=== PATIENT | female | born 1950 | race Caucasian/White ===

== ENCOUNTER → 2020-09-04 09:10 | Outpatient (CLI) | payer MEDICARE, OTHER, SELFPAY ==
--- NOTE | 2020-09-04 09:15 | DI.NM.S_ITS ---
PROCEDURE: NM SUNI PERF SPECT REST & STR Rest and exercise myocardial perfusion SPECT with gated imaging and ejection fraction RADIOPHARMACEUTICAL: 11.7 mCi Tc-99m sestamibi IV at rest and 25.3 mCi Tc-99m sestamibi IV at peak exercise. A one day-protocol was performed. INDICATIONS: Dyspnea, unspecified TECHNIQUE: Radiopharmaceutical was injected at peak stress test, and also at rest. SPECT images were obtained. SPECT myocardial perfusion images were displayed in short axis, horizontal long axis, and vertical long axis views. Gated images were reviewed using [employer] software. COMPARISON: None. CARDIAC STRESS: A standard Christian treadmill exercise tolerance test was performed by the patient under the supervision of an attending staff. The patient exercised for 6 minutes and 0 seconds; functional aerobic impairment (SUGAR) is 0%. Hemodynamic data: There is normal blood pressure and heart rate response to exercise stress. Patient achieved 92% of maximum predicted heart rate at peak exercise. Symptoms: Patient denied chest pain during exercise. EKG: No diagnostic EKG changes of ischemia; frequent PACS with 3-5 beat run of atrial tachycardia that correlated with palpitations. FINDINGS: Raw data: There is good myocardial labeling by radiotracer. No significant motion artifacts. Qnzw-yj-xwbsx ratio is 0.26 (normal is less than 0.38 for sestamibi tracer, and less than 0.50 for thallium tracer). Left ventricle function: Gated images demonstrate normal left ventricle wall thickening. No segmental wall motion abnormality. No transient ischemic dilation; TID is 0.80 (normal less than 1.3). The left ventricle resting end-diastolic volume is 87mL. Left ventricle stress ejection fraction is 83%; normal values are above 45%. Myocardial perfusion: There is midly intense distal anterior wall defect at rest that improves slightly with supine stress imaging, suggesting probably breast attenuation artifact even though a small prior distal anterior non-transmural infarction can'be excluded. No ischemia. Prone images not helpful due to artifacts. IMPRESSION: Low risk, probably normal treadmill nuclear stress test 1) No perfusion evidence of ischemia. There is midly intense distal anterior wall defect at rest that improves slightly with supine stress imaging, suggesting probably breast attenuation artifact even though a small prior distal anterior non-transmural infarction can'be excluded. SSS 0. 2) Normal left ventricular size, wall motion, and systolic function (EF post stress 82%). 3) No ECG evidence of ischemia. 4) Frequent PACs with 3-5 beat run of atrial tachycardia that correlated with palpitations. 5) No angina during the study. 6) Average exercise tolerance (7.0 METs, SUGAR 0%). Target heart rate achieved. Appropriate BP response to exercise. 7) No prior nuclear stress test available for comparison. 1) Dictated by: Brittney Connolly MD on 09/04/2020 at 18:03 Approved by: Brittney Connolly MD on 09/04/2020 at 18:09
[2020-09-04 11:09] LABS: COVID19 - ADMIT (NP swab/PCR) Negative (Negative)
== END ==
PROVIDERS: Internal Medicine; Family Provider Family Medicine; PCP Family Medicine; Referring Provider Family Medicine; Visit Provider Family Medicine
DX: R06.00 Dyspnea, unspecified (principal); Z20.822 Contact with and (suspected) exposure to COVID-19
CPT/HCPCS: 78452; 93017; U0003; A9502

== ENCOUNTER → 2022-11-29 15:10 | Outpatient (CLI) | payer MEDICARE, OTHER, SELFPAY ==
--- NOTE | 2022-11-29 15:12 | DI.MRI.S_ITS ---
PROCEDURE: MR LUMBAR SPINE WO CON INDICATIONS: Sciatica, right-sided TECHNIQUE: Noncontrast sagittal T1 spin echo and T2 fast echo, sagittal STIR, and T2 fast spin echo through the lumbar spine. In cases with scoliosis, additional coronal T2 fast spin echo may be performed. COMPARISON: None. FINDINGS: Image quality: Excellent. Alignment and Curvature: Straightening of normal lumbar lordosis. No spondylolisthesis. Bone Marrow: Marrow is of normal overall signal. No acute vertebral body compression fractures. Spinal Cord: Conus medullaris terminates at the L1 level. Visualized cord demonstrates normal signal and size. Paraspinous Soft Tissues: No paravertebral masses. T12-L1: No central canal or neural foraminal stenosis. L1-L2: Minimal posterior disc bulge and facet arthropathy and thickening ligamentum flavum. Mild epidural lipomatosis. No central canal or neural foraminal stenosis. L2-L3: Disc desiccation and height loss with a posterior disc bulge. Facet arthropathy and thickening of the ligamentum flavum. Mild epidural lipomatosis. No central canal or neural foraminal stenosis. L3-L4: Disc desiccation and height loss with a posterior disc bulge. Facet arthropathy and thickening of the ligamentum flavum. Mild epidural lipomatosis. Mild central canal stenosis. No neural foraminal stenosis. L4-L5: Disc desiccation and height loss with a posterior disc bulge. Facet arthropathy and thickening of the ligamentum flavum. Moderate central canal stenosis. Mild epidural lipomatosis. Mild left neural foraminal stenosis. No right neural foraminal stenosis. L5-S1: Disc desiccation height loss. Right paracentral disc protrusion. Narrowing of the right lateral recess with abutment of the descending right S1 nerve root. No central canal stenosis. Facet arthropathy. No neural foraminal stenosis. IMPRESSION: 1. Multilevel degenerative changes of the lumbar spine, most pronounced at L4-5 with moderate central canal stenosis. 2. There is up to mild neural foraminal stenosis as described above. There is narrowing of the right lateral recess at L5-S1 with abutment of the descending right S1 nerve root without evidence of compression. Dictated by: Antonio Khan M.D. on 11/29/2022 at 16:26 Approved by: Antonio Khan M.D. on 11/29/2022 at 16:30
--- NOTE | 2022-11-29 15:12 | DI.MRI.S_ITS ---
PROCEDURE: MR SHOULDER RT WO CON INDICATIONS: Pain in right shoulder TECHNIQUE: Noncontrast oblique coronal T2 fast spin echo with fat saturation, oblique sagittal T1 spin echo and T2 fast spin echo with fat saturation, axial T1 spin echo and T2 fast spin echo with fat saturation through the shoulder. COMPARISON: None. FINDINGS: Image quality: Degraded by body habitus. Rotator cuff: Low-grade intrasubstance tears of the anterior, mid, and posterior supraspinatus as well as the anterior, mid, and posterior infraspinatus tendon at the humeral insertion site. No definite subscapularis or teres minor tendon tear. No rotator cuff atrophy. Bones and bursae: No bone marrow contusions or fractures. Moderate glenohumeral and acromioclavicular joint degeneration. The acromion demonstrates conventional anatomy, without an os acromiale. No pathologic subacromial-subdeltoid or subcoracoid bursal fluid is present. Capsule and soft tissues: Diffuse glenoid labral tearing is present. There is a moderate glenohumeral joint effusion. Multiple intra-articular loose bodies are present, largest of which is in the subcoracoid recess measuring 12 mm diameter. The long head of the biceps tendon demonstrates normal location and morphology. The rotator interval appears normal, without fibrosis. The coracohumeral ligament is normal in thickness. IMPRESSION: 1. Acromioclavicular and glenohumeral joint osteoarthritis. 2. Glenoid labral tearing. 3. Glenohumeral joint effusion with intra-articular loose bodies. 4. Low-grade partial-thickness tears of the supraspinatus and infraspinatus tendons. No definite full-thickness rotator cuff tear. Dictated by: Lakesha Melchor M.D. on 11/30/2022 at 8:31 Approved by: Lakesha Melchor M.D. on 11/30/2022 at 8:34
--- NOTE | 2022-11-29 15:12 | DI.MRI.S_ITS ---
PROCEDURE: MR CERVICAL SPINE WO CON INDICATIONS: Cervicalgia TECHNIQUE: Noncontrast sagittal T1 spin echo and T2 fast spin echo, sagittal STIR, foraminal oblique sagittal T2 fast spin echo, and axial gradient echo or T2 fast spin echo through the cervical spine. COMPARISON: None. FINDINGS: Image quality: This examination is limited by involuntary motion artifact. Alignment and Curvature: There is normal bony alignment. Bone Marrow: Marrow demonstrates normal overall signal. Spinal Cord: Visualized spinal cord has normal size and signal. No cerebellar tonsillar herniation. Paraspinous Soft Tissues: No paravertebral masses. Prevertebral soft tissues are normal in thickness. C2-C3: The disc height is well-preserved. Loss of disc signal is seen at this level. Mild to moderate disc osteophyte complex is seen. Mild facet joint hypertrophy is seen. There is at least moderate right-sided and no significant left-sided neural foraminal narrowing. No significant central canal narrowing is seen. C3-C4: The disc height is well-preserved. Loss of disc signal is seen at this level. Mild to moderate disc osteophyte complex is seen, which is slightly eccentric to the left. Moderate facet hypertrophy can be seen, left worse than right. There is moderate to severe left-sided and [id number] right-sided neural foraminal narrowing. Mild central canal narrowing is seen. C4-C5: The disc height is well-preserved. Loss of disc signal is seen at this level. Mild to moderate disc osteophyte complex is seen. There is at least moderate right-sided and moderate left-sided facet hypertrophy. There is moderate bilateral neural foraminal narrowing seen. Mild central canal narrowing is seen. C5-C6: The disc height is well-preserved. Loss of disc signal is seen at this level. Moderate generalized disc osteophyte complex is seen. There is at least moderate left-sided and [id number]-[id number] right-sided neural foraminal narrowing. There is moderate to severe left-sided and moderate right-sided neural foraminal narrowing. Minimal central canal narrowing is seen. C6-C7: Mild loss of disc height is seen. Loss of disc signal is seen. At least moderate disc osteophyte complex is seen. There is at least moderate facet hypertrophy seen at this level. There is moderate to severe bilateral neural foraminal narrowing seen, left worse than right. Mild central canal narrowing is seen. C7-T1: No significant abnormality is seen. IMPRESSION: Multiple levels of cervical spine degenerative change can be seen, which are overall worst at the C6-C7 level. Dictated by: Hayden Tejeda M.D. on 11/29/2022 at 17:47 Approved by: Hayden Tejeda M.D. on 11/29/2022 at 17:50
== END ==
PROVIDERS: Family Provider Family Medicine; PCP Nurse Practitioner Family; Referring Provider Nurse Practitioner Family; Visit Provider Nurse Practitioner Family
DX: M75.111 Incomplete rotator cuff tear or rupture of right shoulder, not specified as traumatic (principal); S43.491A Other sprain of right shoulder joint, initial encounter; M19.011 Primary osteoarthritis, right shoulder; M47.812 Spondylosis without myelopathy or radiculopathy, cervical region; M47.816 Spondylosis without myelopathy or radiculopathy, lumbar region; M47.817 Spondylosis without myelopathy or radiculopathy, lumbosacral region; M48.061 Spinal stenosis, lumbar region without neurogenic claudication; M25.511 Pain in right shoulder; M54.31 Sciatica, right side; M54.2 Cervicalgia
CPT/HCPCS: 72141; 72148; 73221

== ENCOUNTER → 2023-09-22 | Outpatient (CLI) | payer MEDICARE, SELFPAY ==
--- NOTE | 2023-09-22 12:16 | DI.MRI.S_ITS ---
PROCEDURE: MR OPTIC NRV WWO CON INDICATIONS: Exophthalmos TECHNIQUE: Noncontrast sagittal T1 spin echo, axial FLAIR, axial gradient echo, axial diffusion and ADC acquired through the brain. Coronal STIR, thin-slice axial T1 spin echo through the orbits. After the administration of contrast, thin-slice axial and coronal T1 spin echo with fat saturation through the orbits, axial and coronal and sagittal T1 spin echo with fat saturation through the brain. COMPARISON: None. FINDINGS: Image quality: Excellent. Orbits: Globes are symmetrical. Bilateral lens replacements. The optic nerves are normal in size, without abnormal signal or enhancement. No retrobulbar masses or fat abnormalities. The extra-ocular muscles are normal and symmetric in appearance. Lacrimal glands are normal. Optic chiasm is normal. Periorbital soft tissues appear normal. CSF spaces: Ventricles are normal in size and shape. Basal cisterns are patent. No extra-axial fluid collections. Brain: No intracranial bleeds or mass effects. No abnormal intracranial enhancement. Swartz-white matter interface is intact. There is age appropriate global volume loss and mild chronic microvascular ischemic changes. Diffusion weighted images demonstrate no acute ischemic insults. Pituitary gland appears normal, without sellar or suprasellar masses. Brainstem appears normal. Normal intravascular flow voids are present. Right cerebellar hemisphere developmental venous anomaly. Skull and face: Calvarial marrow is normal in signal. Sinuses: Sinuses and mastoids are clear. IMPRESSION: Bilateral lens replacements. The orbits are otherwise normal in appearance. No abnormal enhancement or edema. No significant exophthalmos is appreciated radiographically, recommend clinical correlation. Age-related global volume loss and mild chronic microvascular ischemic changes. No acute intracranial abnormalities. Dictated by: Antonio Khna M.D. on 09/22/2023 at 14:31 Approved by: Antonio Khan M.D. on 09/22/2023 at 14:36
== END ==
LOC: MRI 12:13
PROVIDERS: Family Provider Family Medicine; PCP Nurse Practitioner Family
DX: H05.20 Unspecified exophthalmos (principal); Z96.1 Presence of intraocular lens
CPT/HCPCS: 70543; 70553; A9579

== ENCOUNTER → 2024-01-11 13:37 | Outpatient (CLI) | payer MEDICARE, SELFPAY ==
--- NOTE | 2024-01-11 13:39 | DI.MRI.S_ITS ---
PROCEDURE: MR ANKLE RT WO CON INDICATIONS: RT ANKLE PAIN, ARTHRITIS TECHNIQUE: Noncontrast sagittal T1 spin echo and T2 fast spin echo with fat saturation, axial proton density fast spin echo and T2 fast spin echo with fat saturation, coronal T1 spin echo and T2 fast spin echo with fat saturation through the ankle/hindfoot. COMPARISON: None. FINDINGS: Image quality: Excellent. Moderate diffuse subcutaneous soft tissue edema medial greater than laterally may be related to venous stasis or other process. Bones and joints: No bone marrow contusions or fractures. No osteochondral injuries of the talar dome. No pathologic joint effusions. Medial structures: Increased T2 weighted signal, edema and thickening of the distal posterior tibialis tendon has the appearance of partial tear. Injury/partial tear of the anterior tibiotalar ligament , deltoid ligament and talocalcaneal ligaments. The flexor digitorum longus, and flexor hallucis longus tendons are intact. The posterior tibial neurovascular bundle appears normal within the tarsal tunnel, without extrinsic mass effect. The spring ligament is intact. Lateral structures: Injury/tear of the calcanealfibular ligament. Fluid surrounding the mid and distal Peroneus longus and brevis tendons, tenosynovitis. The anterior and posterior talofibular ligaments appear intact. More superiorly, the anterior and posterior tibiofibular ligaments appear intact. The tibiofibular syndesmosis is normal in width at 2 mm or less. Anterior structures: The tibialis anterior, extensor hallucis longus, and extensor digitorum longus tendons appear intact. The dorsal talonavicular ligament appears intact. Posterior and plantar structures: Achilles tendon is intact. IMPRESSION: Diffuse soft tissue edema predominantly laterally may be related to venous stasis, ecchymosis or other process. Peroneus tenosynovitis. Ligamentous injuries with partial tears predominantly medially as discussed above. Other findings as discussed above. Dictated by: Jose Gregory M.D. on 01/16/2024 at 8:23 Approved by: Jose Gregory M.D. on 01/16/2024 at 8:48
== END ==
PROVIDERS: Family Provider Family Medicine; PCP Nurse Practitioner Family; Referring Provider Nurse Practitioner Family; Visit Provider Nurse Practitioner Family
DX: S93.421A Sprain of deltoid ligament of right ankle, initial encounter (principal); S93.411A Sprain of calcaneofibular ligament of right ankle, initial encounter; S93.491A Sprain of other ligament of right ankle, initial encounter; M65.871 Other synovitis and tenosynovitis, right ankle and foot; M25.571 Pain in right ankle and joints of right foot
CPT/HCPCS: 73721

== ENCOUNTER 2024-09-14 17:05 | Observation (INO) | payer OTHER, SELFPAY ==
[2024-09-14] VITALS (8 sets, daily range): BP systolic 118–162; BP diastolic 58–94; PULSE 67–75; RESP 16–18; TEMP 37.1; O2SAT 94–99; BMI 32.3
--- NOTE | 2024-09-14 18:02 | EKG_ITS ---
[address] [address] Test Date: 2024-09-14 Pat Name: Carmela Ac Department: [facility] Room: Gender: Female Integrated [employer] Intern: SYDNEY : 1950 Requested By: Order Number: [id number] Reading MD: Guevara Garay Measurements Intervals Jackson Rate: 71 P: 60 TX: 128 QRS: 42 QRSD: 124 T: 32 QT: 430 QTc: 467 Interpretive Statements Normal sinus rhythm Right bundle branch block Electronically Signed On 09-15-2024 8:43:20 PDT by Guevara Garay
[2024-09-14 18:47] LABS: Add Manual Diff / Slide Review NO; Basophils Absolute Auto 0 /uL (0-100); Basophils Percent Auto 0.9 % (0-2); Eosinophils Absolute Auto 100 /uL (0-450); Eosinophils Percent Auto 3.5 % (2-4); Hematocrit 40.5 % (36-46); Hemoglobin 13.3 g/dL (12.0-16.0); Lymphocytes Absolute Auto 1000 /uL (1100-4500); Lymphocytes Percent Auto 32.5 % (25-40); Mean Corpuscular HGB Conc 32.9 % (30-36); Mean Corpuscular Hemoglobin 27.8 PG (26-34); Mean Corpuscular Volume 84.6 fL (80-100); Monocytes Absolute Auto 300 /uL (0-900); Monocytes Percent Auto 10.9 % (3-14); Neutrophils Absolute Auto 1600 /uL (1500-7000); Neutrophils Percent Auto 52.2 % (50-75); Platelet Count 147 X10^3/uL (150-400); Red Blood Cell Count 4.79 X10^6/uL (4.0-5.2); Red Cell Distribution Width 13.7 % (11.6-14.8); White Blood Cell Count 3.1 X10^3/uL (4.5-11.0)
[2024-09-14 18:51] LABS: Alanine Aminotransferase 15 IU/L (<35); Albumin 4.1 g/dL (3.5-5.0); Albumin Globulin Ratio 1.5 (1.0-2.8); Alkaline Phosphatase 55 U/L (38-126); Aspartate Aminotransferase 30 IU/L (14-36); BUN Creatinine Ratio 17.4 (6-22); Bilirubin Total 0.8 mg/dL (0.2-1.3); Blood Urea Nitrogen 12 mg/dL (7-17); Calcium 9.1 mg/dL (8.4-10.2); Carbon Dioxide 25 mmol/L (22-32); Chloride 104 mmol/L (98-107); Estimated Glomerular Filt Rate > 60 mL/min (>60); Globulin 2.7 g/dL (1.7-4.1); Glucose 95 mg/dL (70-99); HEMOLYSIS 30 (0-50); Lipase 84 U/L (23-300); Potassium 4.2 mmol/L (3.4-5.1); Sodium 136 mmol/L (137-145); Total Protein 6.8 g/dL (6.3-8.2)
[2024-09-14 20:55] LABS: Troponin I < 0.012 ng/mL (0.01-0.034)
--- NOTE | 2024-09-14 21:31 | DI.US.S_ITS ---
PROCEDURE: US ABDOMEN LIMITED INDICATIONS: CHOLELITHIASIS WITH WORSENING PAIN TECHNIQUE: Real-time focused scanning was performed of the abdomen, with image documentation. COMPARISON: None. FINDINGS: Nonmobile 2.1 cm gallstone is seen. No sonographic Staton sign. Heterogeneous coarsened hepatic echotexture. Liver cysts are seen, largest in the left measuring 1.2 cm. Mildly distended CBD at 8 mm. Pancreas not well seen due to bowel gas. IMPRESSION: Cholelithiasis without sonographic Staton sign to suggest cholecystitis. Increased heterogeneous coarsened hepatic echotexture, nonspecific, most commonly hepatocellular disease. Mildly distended CBD at 8 mm. Dictated by: Jeff Moore M.D. on 09/14/2024 at 23:08 Approved by: Jeff Moore M.D. on 09/14/2024 at 23:09
[2024-09-14] MEDS: ONDANSETRON 4 MG/2 ML INJ IV (22:36)
--- NOTE | 2024-09-14 23:03 | ED.ABDPAIN ---
HPI - Abdominal Pain General Chief Complaint: Abdominal Pain Stated Complaint: gallstone sent by PCP Time Seen by Provider: 09/14/24 21:52 Source: patient Mode of arrival: Ambulatory History of Present Illness HPI narrative: 73-year-old female complains of right upper quadrant discomfort for the last 1 month intermittent, had outpatient ultrasound through [facility] on [facility] about 2 weeks ago showing gallstones, had been trying to avoid fatty foods, [place] appointment and was in the [place] line to return back to [facility] when she was having increasing nausea and increasing right upper quadrant abdominal pain, communicated with her primary care provider, who advised patient to go to this/nearest hospital for imaging. No fevers or chills. Ongoing nausea. Denies recent cough or shortness of breath. No chest pain. She does not take blood thinner medications. PSHx: Bilateral knee replacements. L ankle-foot tendon transfer surgery. Denies abdominopelvic surgeries. Related Data Home Medications ?Medication ?Instructions ?Recorded ?Confirmed dextroamphetamine-amphetamine ER 1 cap PO DAILY 09/15/24 09/15/24 10 mg 24hr capsule,extend release estradiol 0.025 mg/24 hr weekly 1 patch transdermal .COMPLEX 09/15/24 09/15/24 transdermal patch fluoxetine 10 mg capsule 10 mg PO DAILY 09/15/24 09/15/24 levothyroxine 125 mcg tablet 125 mcg PO DAILY 09/15/24 09/15/24 pramipexole 0.25 mg tablet 0.25 mg PO 3XD 09/15/24 09/15/24 progesterone micronized 100 mg 100 mg PO QPM 09/15/24 09/15/24 capsule trazodone 100 mg tablet 100 mg PO ONCE PM PRN insomnia 09/15/24 09/15/24 Allergies Allergy/AdvReac Type Severity Reaction Status Date / Time Sulfa (Sulfonamide Allergy Severe Anaphylaxis Verified 09/14/24 18:03 Antibiotics) Patient History Social History household members: none Smoking Status: Never smoker Exam Narrative Exam Narrative: GENERAL: Well-developed patient, in mild distress. HEAD: Atraumatic. Normocephalic. EYES: Pupils equal round and reactive. Extraocular motions intact. No scleral icterus. No injection or drainage. ENT: Nose without bleeding, purulent drainage. Throat without erythema, tonsillar hypertrophy or exudate. Airway patent. NECK: Trachea midline. Non tender CARDIOVASCULAR: Regular rate and rhythm without murmurs, gallops, or rubs. RESPIRATORY: Clear to auscultation. Breath sounds equal bilaterally. No wheezes, rales, or rhonchi. GASTROINTESTINAL: Abdomen nondistended, some tenderness right upper quadrant on deep palpation. Bowel tones hypoactive, without rushes or tinkles. EXTREMITIES: No edema or joint tenderness. BACK: Nontender without deformity or crepitance. No flank tenderness. NEURO: AOx3. Motor functions grossly nonfocal SKIN: No rash or erythema of visible areas Initial Vital Signs Initial Vital Signs: Vital Signs Temperature 98.7 F 09/14/24 17:57 Pulse Rate 74 09/14/24 17:57 Respiratory Rate 18 09/14/24 17:57 Blood Pressure 153/94 H 09/14/24 17:57 Pulse Oximetry 97 09/14/24 17:57 Oxygen Delivery Method Room Air 09/14/24 17:57 Course Orders Ordered: ED Orders 09/14/24 18:02 EKG-12 Lead Stat 09/14/24 18:15 Complete Blood Count AUTO DIFF Stat Comprehensive Metabolic Panel Stat Lipase Stat 09/14/24 19:48 Troponin I Stat 09/14/24 21:31 US abdomen limited Stat 09/15/24 06:00 Complete Blood Count AUTO DIFF DAILY Comprehensive Metabolic Panel DAILY Acetaminophen (Acetaminophen 325 Mg Tablet) 650 mg PO Q6H PRN PRN Reason: Fever/Mild Pain (1-3) Hydrocodone Bitart/Acetaminophen (Hydrocodone/Acet 5/325 Tablet) 1 tab PO Q4H PRN PRN Reason: Pain, Moderate (4-6) Cyclobenzaprine HCl (Cyclobenzaprine 10 Mg Tablet) 10 mg PO Q8HR PRN PRN Reason: Spasms Fluoxetine HCl (Fluoxetine 10 Mg Capsule) 10 mg PO DAILY MAYI Sodium Chloride (Normal Saline 0.9%) 1,000 mls @ 100 mls/hr IV CONT MAYI Levothyroxine Sodium (Levothyroxine 125 Mcg Tablet) 125 mcg PO 0600 MAYI Morphine Sulfate (Morphine 4 Mg/Ml Inj) 3 mg IV Q2HR PRN PRN Reason: pain severe Naloxone HCl (Naloxone 0.4 Mg/Ml Vial) 0.2 mg IV Q2MIN PRN PRN Reason: Opiate Reversal Ondansetron HCl (Ondansetron 4 Mg/2 Ml Inj) 4 mg IV NOW PRN PRN Reason: Nausea And Vomiting Last Admin: 09/14/24 22:36 Dose: 4 mg Documented By: KATIUSKA Ondansetron HCl (Ondansetron 4 Mg Odt) 4 mg PO NOW PRN PRN Reason: Nausea And Vomiting Ondansetron HCl (Ondansetron 4 Mg/2 Ml Inj) 4 mg IV Q8HR PRN PRN Reason: Nausea And Vomiting Pramipexole Dihydrochloride (Pramipexole 0.25 Mg Tablet) 0.25 mg PO TID MAYI Progesterone (Progesterone, Micronized 100 Mg Capsule) 100 mg PO QPM MAYI Sodium Chloride (Sodium Chloride 0.9% Flush) 10 ml IV PRN PRN PRN Reason: Flush Trazodone HCl (Trazodone 50 Mg Tablet) 100 mg PO BEDTIME PRN PRN Reason: Insomnia Discontinued Medications Ondansetron HCl (Ondansetron 4 Mg/2 Ml Inj) 4 mg IV NOW ONE Stop: 09/14/24 23:26 Last Admin: 09/14/24 23:31 Dose: Not Given Documented By: AM Vital Signs Vital signs: Vital Signs - 8 hr 09/14/24 21:39 09/14/24 21:50 09/14/24 22:06 Temperature Pulse Rate 71 67 75 Respiratory Rate 16 18 Blood Pressure 162/76 H Pulse Oximetry 99 98 Oxygen Delivery Method Room Air Room Air Oxygen Flow Rate 09/14/24 22:08 09/14/24 22:08 09/14/24 22:30 Temperature Pulse Rate 71 Respiratory Rate 18 Blood Pressure 152/74 H 140/70 Pulse Oximetry 98 Oxygen Delivery Method Oxygen Flow Rate 09/14/24 22:30 09/14/24 23:00 09/14/24 23:00 Temperature Pulse Rate 68 72 Respiratory Rate 18 18 Blood Pressure 118/58 L Pulse Oximetry 99 99 Oxygen Delivery Method Room Air Oxygen Flow Rate 09/14/24 23:30 09/15/24 00:00 09/15/24 00:13 Temperature Pulse Rate 71 73 Respiratory Rate 18 18 18 Blood Pressure 137/81 Pulse Oximetry 94 97 Oxygen Delivery Method Room Air Oxygen Flow Rate 09/15/24 00:13 09/15/24 00:28 09/15/24 00:30 Temperature 97.6 F Pulse Rate 88 78 69 Respiratory Rate 18 18 Blood Pressure 142/68 H Pulse Oximetry 96 97 96 Oxygen Delivery Method Oxygen Flow Rate 0 MDM - Abdominal Pain Lab Data Attestation: I reviewed the patient's lab results. Lab results narrative: White blood cell count 3100, hemoglobin 13.3, platelets adequate. Glucose 95. BUN 12 with creatinine 0.69. Serum CO2 25 normal. Sodium 136 slight decreased, with normal potassium 4.2. Liver functions and lipase normal. Troponin negative/unmeasurable. Urine dip negative. 09/14/24 18:15 09/14/24 18:15 Labs: Lab Results 09/14/24 09/14/24 Range/Units 18:15 19:48 WBC 3.1 L (4.5-11.0) X10^3/uL RBC 4.79 (4.0-5.2) X10^6/uL Hgb 13.3 (12.0-16.0) g/dL Hct 40.5 (36-46) % MCV 84.6 (80-100) fL MCH 27.8 (26-34) PG MCHC 32.9 (30-36) % RDW 13.7 (11.6-14.8) % Plt Count 147 L (150-400) X10^3/uL Neut % (Auto) 52.2 (50-75) % Lymph % (Auto) 32.5 (25-40) % [place] % (Auto) 10.9 (3-14) % Eos % (Auto) 3.5 (2-4) % Baso % (Auto) 0.9 (0-2) % Neut # (Auto) 1600 (5261-8631) /uL Lymph # (Auto) 1000 L (7037-5742) /uL [place] # (Auto) 300 (0-900) /uL Eos # (Auto) 100 (0-450) /uL Baso # (Auto) 0 (0-100) /uL Sodium 136 L (137-145) mmol/L Potassium 4.2 (3.4-5.1) mmol/L Chloride 104 (98-107) mmol/L Carbon Dioxide 25 (22-32) mmol/L BUN 12 (7-17) mg/dL Creatinine 0.69 (0.52-1.04) mg/dL Estimated GFR > 60 (>60) mL/min BUN/Creatinine Ratio 17.4 (6-22) Glucose 95 (70-99) mg/dL Calcium 9.1 (8.4-10.2) mg/dL Total Bilirubin 0.8 (0.2-1.3) mg/dL AST 30 (14-36) IU/L ALT 15 (<35) IU/L Alkaline Phosphatase 55 (38-126) U/L Troponin I < 0.012 (0.01-0.034) ng/mL Total Protein 6.8 (6.3-8.2) g/dL Albumin 4.1 (3.5-5.0) g/dL Globulin 2.7 (1.7-4.1) g/dL Albumin/Globulin Ratio 1.5 (1.0-2.8) Lipase 84 (23-300) U/L Point of care testing: Urine Dip Bedside Urine Glucose Negative Bedside Urine Bilirubin - Negative Bedside Urine Ketone +/- 5 Urine Specific [place] 1.020 Bedside Urine Occult Blood - Negative Bedside Urine pH 6.0 Bedside Urine Protein - Negative Bedside Urine Urobilinogen - Negative Bedside Urine Nitrite - Negative Bedside Urine Leukocytes - Negative Esterase Imaging Data Ultrasound right upper quadrant abdomen: Radiologist's Impression: [place] [address] Ultrasound Report Signed Patient: Carmela Ac MR#: [id number] : 1950 Acct:[id number] Age/Sex: 73 / F Date of Service: 09/14/24 Loc: ED Accession Number: [id number] Procedure: US abdomen limited Ordering Provider: Chad Daniel MD PROCEDURE: US ABDOMEN LIMITED INDICATIONS: CHOLELITHIASIS WITH WORSENING PAIN TECHNIQUE: Real-time focused scanning was performed of the abdomen, with image documentation. COMPARISON: None. FINDINGS: Nonmobile 2.1 cm gallstone is seen. No sonographic Staton sign. Heterogeneous coarsened hepatic echotexture. Liver cysts are seen, largest in the left measuring 1.2 cm. Mildly distended CBD at 8 mm. Pancreas not well seen due to bowel gas. IMPRESSION: Cholelithiasis without sonographic Staton sign to suggest cholecystitis. Increased heterogeneous coarsened hepatic echotexture, nonspecific, most commonly hepatocellular disease. Mildly distended CBD at 8 mm. Dictated by: Jeff Moore M.D. on 09/14/2024 at 23:08 Approved by: Jeff Moore M.D. on 09/14/2024 at 23:09 ECG Data Attestation: I personally reviewed and interpreted this ECG as follows: Interpretation: Normal sinus rhythm with rate of 71, right bundle branch block pattern. [place] 128, QRS 124, QTC 467. MDM Narrative Medical decision making narrative: 73-year-old female with recent ultrasound diagnosis cholelithiasis 2 weeks ago, increased nausea and right upper quadrant pain today. Afebrile on triage, some tenderness deep palpation right upper quadrant. Labs pending. Keep NPO. Ultrasound requested right upper quadrant. Does not take blood thinner medications. EKG without obvious ischemic changes, sinus rhythm. Initial labs: White blood cell count 3100, hemoglobin 13.3, platelets adequate. Glucose 95. BUN 12 with creatinine 0.69. Serum CO2 25 normal. Sodium 136 slight decreased, with normal potassium 4.2. Liver functions and lipase normal. Troponin negative/unmeasurable. Urine dip negative. Sono tech report, believes there is gallstone stuck in the cystic duct, immobile, without thickening or fluid around the gallbladder. Await radiologist's report. Ultrasound abdomen right upper quadrant. IMPRESSION: Cholelithiasis without sonographic Staton sign to suggest cholecystitis. Increased heterogeneous coarsened hepatic echotexture, nonspecific, most commonly hepatocellular disease.Mildly distended CBD at 8 mm. See radiology report. 0010, case discussed with surgery Dr Grullon, can consult, admit to hospitalist. 0030, case discussed with hospitalist Dr. Guan who accepts patient or admission to observation Discharge Plan Departure Patient Disposition: Admitted as Observation Clinical Impression: Symptomatic cholelithiasis Admit Date/Time: 09/15/24 00:31 Admit Provider: Matthew Guan
[2024-09-15] VITALS (18 sets, daily range): BP systolic 113–162; BP diastolic 54–81; PULSE 69–88; RESP 12–19; TEMP 36.1–37.1; O2SAT 93–99; BMI 32.3
--- NOTE | 2024-09-15 | PATH_ITS ---
[facility] Accession Number: [id number] No. of containers..01 Tissue . 01 Material submitted: . gallbladder - GALLBLADDER AND CONTENTS . 01 Diagnosis: GALLBLADDER, CHOLECYSTECTOMY: Mild chronic cholecystitis with cholelithiasis. One benign lymph node. MRV 09/21/2024 1402 Local . 01 Electronically signed: . Janny Landa DO, Pathologist NPI- [id number] . 01 Gross description: . Received in formalin with two identifiers and gallbladder, is an intact gallbladder, 9.5 x 2.9 x 2.6 cm with an unremarkable external surface. The cystic duct margin is inked blue and a farmer to brown pericystic lymph node candidate is identified, 1.5 cm in greatest dimension. The lumen contains a dark green-brown roughened calculus, 2.4 cm in greatest dimension not grossly obstructing the cystic duct and admixed with dark green mucoid bile. The mucosa is green and velvety with no yellow areas of discoloration, polyps, or lesions identified. The travis average 0.2 cm thick. Slab Lifting Supervisor sections to include the cystic duct margin, full thickness sections, and one-half of the lymph node candidate are submitted in A1. ([id number]) /MRV 09/19/2024 1922 Local . 01 Pathologist provided ICD-10: K80.10 . 01 CPT . 520480 Specimen Comment: A courtesy copy of this report has been sent to [facility] Pathology Performed at: [address] [address], [place], [place] [id number] MD Aftab Cooley MD Phone: [phone]
--- NOTE | 2024-09-15 00:42 | PM.HP.1 ---
History of Present Illness History of Present Illness Chief complaint: gallstone sent by PCP Narrative: 73-year hypothyroidism, depression and-old female with past medical history of chronic pain presents with abdominal pain. Per the patient report, the patient was seen at [facility] 2 weeks ago with abdominal ultrasound that shows gallstones. The patient has been having this abdominal pain intermittently over the last month. The patient was diagnosed with gallstone but no surgery was indicated at that time. Over the last 24 hours, the patient has increasing right upper quadrant pain with some nausea but denies any vomiting. The patient states her pain is severe and nonradiating. Otherwise the patient denies any fever, chills, chest pain, dysuria, diarrhea, cough or shortness of breath. In the emergency room, the patient was hemodynamically stable. Labs were relatively benign with WBC 3.1 normal LFTs and normal bilirubin. Right upper quadrant abdominal ultrasound again shows cholelithiasis without signs of cholecystitis. General surgery was consulted and recommended that we admit the patient for pain control IV fluid n.p.o. and possible cholecystectomy in the morning. [facility] Social History household members: none Smoking Status: Never smoker Meds Home Medications and Allergies Home Medications ?Medication ?Instructions ?Recorded ?Confirmed ?Type dextroamphetamine-amphetamine ER 1 cap PO DAILY 09/15/24 09/15/24 History 10 mg 24hr capsule,extend release estradiol 0.025 mg/24 hr weekly 1 patch transdermal .COMPLEX 09/15/24 09/15/24 History transdermal patch fluoxetine 10 mg capsule 10 mg PO DAILY 09/15/24 09/15/24 History levothyroxine 125 mcg tablet 125 mcg PO DAILY 09/15/24 09/15/24 History pramipexole 0.25 mg tablet 0.25 mg PO 3XD 09/15/24 09/15/24 History progesterone micronized 100 mg 100 mg PO QPM 09/15/24 09/15/24 History capsule trazodone 100 mg tablet 100 mg PO ONCE PM PRN insomnia 09/15/24 09/15/24 History Allergies Allergy/AdvReac Type Severity Reaction Status Date / Time Sulfa (Sulfonamide Allergy Severe Anaphylaxis Verified 09/14/24 18:03 Antibiotics) Review of Systems Review of Systems ROS: Yes All systems reviewed with the patient and are negative except as otherwise documented Exam Vital Signs (past 8 hours): - 09/14/24 17:57 09/14/24 21:39 09/14/24 21:50 Temperature 98.7 F Pulse Rate 74 71 67 Respiratory Rate 18 16 18 Blood Pressure 153/94 H 162/76 H Pulse Oximetry 97 99 98 Oxygen Delivery Method Room Air Room Air Room Air 09/14/24 22:06 09/14/24 22:08 09/14/24 22:08 Temperature Pulse Rate 75 71 Respiratory Rate 18 Blood Pressure 152/74 H Pulse Oximetry 98 Oxygen Delivery Method 09/14/24 22:30 09/14/24 22:30 09/14/24 23:00 Temperature Pulse Rate 68 Respiratory Rate 18 Blood Pressure 140/70 118/58 L Pulse Oximetry 99 Oxygen Delivery Method 09/14/24 23:00 09/14/24 23:30 09/15/24 00:00 Temperature Pulse Rate 72 71 73 Respiratory Rate 18 18 18 Blood Pressure Pulse Oximetry 99 94 97 Oxygen Delivery Method Room Air Room Air 09/15/24 00:13 09/15/24 00:13 Temperature Pulse Rate 88 Respiratory Rate 18 Blood Pressure 137/81 Pulse Oximetry 96 Oxygen Delivery Method Oxygen Delivery Method Room Air Narrative Exam Narrative: Physical Exam: GENERAL: The patient is not in any acute distressed. Awake and alert. HEENT: Nonicteric sclerae, PERRLA, EOMI. Oropharynx clear. Moist mucous membranes. Conjunctivae appear well perfused. HEART: Regular rate and rhythm without murmurs. No lower extremities edema. LUNGS: Clear to auscultation bilaterally. No wheezing, crackles or rhonchi ABDOMEN: Soft, positive bowel sounds, nontender. SKIN: No rash, no excessive bruising, petechiae, or purpura. NEUROLOGIC: AxO x 3. Cranial nerves II-XII intact without motor/sensory deficit. Objective Labs 09/14/24 18:15 09/14/24 18:15 Labs: Laboratory Results - last 24 hr 09/14/24 09/14/24 18:15 19:48 WBC 3.1 L RBC 4.79 Hgb 13.3 Hct 40.5 MCV 84.6 MCH 27.8 MCHC 32.9 RDW 13.7 Plt Count 147 L Neut % (Auto) 52.2 Lymph % (Auto) 32.5 [place] % (Auto) 10.9 Eos % (Auto) 3.5 Baso % (Auto) 0.9 Neut # (Auto) 1600 Lymph # (Auto) 1000 L [place] # (Auto) 300 Eos # (Auto) 100 Baso # (Auto) 0 Sodium 136 L Potassium 4.2 Chloride 104 Carbon Dioxide 25 BUN 12 Creatinine 0.69 Estimated GFR > 60 BUN/Creatinine Ratio 17.4 Glucose 95 Calcium 9.1 Total Bilirubin 0.8 AST 30 ALT 15 Alkaline Phosphatase 55 Troponin I < 0.012 Total Protein 6.8 Albumin 4.1 Globulin 2.7 Albumin/Globulin Ratio 1.5 Lipase 84 Assessment & Plan Assessment and plan (1) Symptomatic cholelithiasis: Status: Acute Assessment & Plan narrative: Symptomatic cholelithiasis. Admit the patient to medical observation. Of note the patient not septic at this time. Will hold off any antibiotics. IV fluid n.p.o. and pain control. Appreciate general surgery input regarding surgical intervention. Patient is medically stable and cleared for surgery if needed in the morning. Leukopenia. Mild. Monitor for now. Again no obvious signs of infection and patient not septic. Hypothyroidism. Resume home Synthroid. Depression. Resume home antidepressant. DVT prophylaxis SCDs due to possible surgery in the morning. CODE STATUS full code. Disposition likely home in 1 to 2 days - As the provider of this telehealth evaluation, requested by the patient's evaluating physician, I attest that I introduced myself to the patient, provided my credentials and determined that telemedicine via a real-time, 2 way interactive audio and video platform is an appropriate and effective means of providing this service. - I reviewed the patient's chart and had a discussion with the member of the patient's treatment team. - The patient and I mutually agreed with continuation of this evaluation via telemedicine. The patient consented for the telemedicine evaluation. - This virtual encounter was taken place from [place] by Dr. Matthew Guan. The patient was evaluated at [facility]. The encounter was approximately 35 minutes. The nurse was present during the entire time of the encounter and was able to move the stethoscope in appropriate directions. Time-Based Coding :: [TOTAL MINUTES] spent with patient and on the chart (including review of chart, obtaining history, exam, reviewing outside data, placing orders, documenting exam and treatment plan, and counseling patient) on [DATE].
[2024-09-15] MEDS: SODIUM CHLORIDE 0.9% 1,000 ML 100 ML IV ×2 (03:01→15:48)
[2024-09-15] MEDS: PRAMIPEXOLE 0.25 MG TABLET PO (03:01)
[2024-09-15] MEDS: CYCLOBENZAPRINE 10 MG TABLET PO (03:01)
[2024-09-15] MEDS: LEVOTHYROXINE 125 MCG TABLET PO (06:13)
[2024-09-15 06:16] LABS: Add Manual Diff / Slide Review NO; Basophils Absolute Auto 0 /uL (0-100); Basophils Percent Auto 0.7 % (0-2); Eosinophils Absolute Auto 100 /uL (0-450); Eosinophils Percent Auto 3.5 % (2-4); Hematocrit 37.9 % (36-46); Hemoglobin 12.5 g/dL (12.0-16.0); Lymphocytes Absolute Auto 800 /uL (1100-4500); Lymphocytes Percent Auto 35.5 % (25-40); Mean Corpuscular HGB Conc 32.9 % (30-36); Mean Corpuscular Hemoglobin 27.8 PG (26-34); Mean Corpuscular Volume 84.5 fL (80-100); Monocytes Absolute Auto 300 /uL (0-900); Monocytes Percent Auto 14.7 % (3-14); Neutrophils Absolute Auto 1100 /uL (1500-7000); Neutrophils Percent Auto 45.6 % (50-75); Platelet Count 129 X10^3/uL (150-400); Red Blood Cell Count 4.48 X10^6/uL (4.0-5.2); Red Cell Distribution Width 13.3 % (11.6-14.8); White Blood Cell Count 2.3 X10^3/uL (4.5-11.0)
[2024-09-15 06:25] LABS: Alanine Aminotransferase 12 IU/L (<35); Albumin 3.2 g/dL (3.5-5.0); Albumin Globulin Ratio 1.3 (1.0-2.8); Alkaline Phosphatase 43 U/L (38-126); Aspartate Aminotransferase 22 IU/L (14-36); BUN Creatinine Ratio 15.2 (6-22); Bilirubin Total 0.6 mg/dL (0.2-1.3); Blood Urea Nitrogen 10 mg/dL (7-17); Calcium 8.6 mg/dL (8.4-10.2); Carbon Dioxide 27 mmol/L (22-32); Chloride 107 mmol/L (98-107); Estimated Glomerular Filt Rate > 60 mL/min (>60); Globulin 2.5 g/dL (1.7-4.1); Glucose 96 mg/dL (70-99); HEMOLYSIS < 15 (0-50); Potassium 4.5 mmol/L (3.4-5.1); Sodium 137 mmol/L (137-145); Total Protein 5.7 g/dL (6.3-8.2)
--- NOTE | 2024-09-15 07:39 | PM.HP.1 ---
History of Present Illness History of Present Illness Chief complaint: gallstone sent by PCP Narrative: From night doctor: 73-year hypothyroidism, depression and-old female with past medical history of chronic pain presents with abdominal pain. Per the patient report, the patient was seen at [facility] 2 weeks ago with abdominal ultrasound that shows gallstones. The patient has been having this abdominal pain intermittently over the last month. The patient was diagnosed with gallstone but no surgery was indicated at that time. Over the last 24 hours, the patient has increasing right upper quadrant pain with some nausea but denies any vomiting. The patient states her pain is severe and nonradiating. Otherwise the patient denies any fever, chills, chest pain, dysuria, diarrhea, cough or shortness of breath. In the emergency room, the patient was hemodynamically stable. Labs were relatively benign with WBC 3.1 normal LFTs and normal bilirubin. Right upper quadrant abdominal ultrasound again shows cholelithiasis without signs of cholecystitis. General surgery was consulted and recommended that we admit the patient for pain control IV fluid n.p.o. and possible cholecystectomy in the morning. S: Her nausea and pain have improved. She has no history of gallbladder attacks. She lives in [place]. PENDING SALE TO [facility] Social History household members: none Smoking Status: Never smoker Meds Home Medications and Allergies Home Medications ?Medication ?Instructions ?Recorded ?Confirmed ?Type dextroamphetamine-amphetamine ER 1 cap PO DAILY 09/15/24 09/15/24 History 10 mg 24hr capsule,extend release estradiol 0.025 mg/24 hr weekly 1 patch transdermal .COMPLEX 09/15/24 09/15/24 History transdermal patch fluoxetine 10 mg capsule 10 mg PO DAILY 09/15/24 09/15/24 History levothyroxine 125 mcg tablet 125 mcg PO DAILY 09/15/24 09/15/24 History pramipexole 0.25 mg tablet 0.25 mg PO 3XD 09/15/24 09/15/24 History progesterone micronized 100 mg 100 mg PO QPM 09/15/24 09/15/24 History capsule trazodone 100 mg tablet 100 mg PO ONCE PM PRN insomnia 09/15/24 09/15/24 History Allergies Allergy/AdvReac Type Severity Reaction Status Date / Time Sulfa (Sulfonamide Allergy Severe Anaphylaxis Verified 09/14/24 18:03 Antibiotics) Review of Systems Review of Systems Narrative: All else reviewed and otherwise unremarkable except as noted in the history and physical. Exam Vital Signs (past 8 hours): - 09/15/24 00:00 09/15/24 00:13 09/15/24 00:13 Temperature Pulse Rate 73 88 Respiratory Rate 18 18 Blood Pressure 137/81 Pulse Oximetry 97 96 Oxygen Delivery Method Oxygen Flow Rate 09/15/24 00:28 09/15/24 00:30 09/15/24 00:36 Temperature 97.6 F Pulse Rate 78 69 Respiratory Rate 18 18 Blood Pressure 142/68 H Pulse Oximetry 97 96 Oxygen Delivery Method Room Air Oxygen Flow Rate 0 09/15/24 01:35 09/15/24 06:00 Temperature 97.6 F 97.0 F L Pulse Rate 78 80 Respiratory Rate 18 19 Blood Pressure 142/68 H 132/66 Pulse Oximetry 97 96 Oxygen Delivery Method Oxygen Flow Rate 0 0 Oxygen Delivery Method Room Air Oxygen Flow Rate 0 Narrative Exam Narrative: NAD, alert and oriented, fluent speech, calm. Normocephalic skull, EOMI, anicteric sclera, symmetric pupils. Oropharynx unremarkable, no droop. Neck supple, midline trachea, no adenopathy. Lungs clear, normal rate and effort. Heart regular, no murmur gallop or rub. Abdomen is soft, non distended and non tender. Extremities are free of edema. Skin is free of rash or lesions. Joints are not swollen or deformed. Judgment appears to be normal. Objective Imaging US - abdomen: Radiologist's impression: Cholelithiasis without sonographic Staton sign to suggest cholecystitis. Increased heterogeneous coarsened hepatic echotexture, nonspecific, most commonly hepatocellular disease. Mildly distended CBD at 8 mm. Labs 09/15/24 05:53 09/15/24 05:53 Labs: Laboratory Results - last 24 hr 09/14/24 09/14/24 09/15/24 18:15 19:48 05:53 WBC 3.1 L 2.3 L RBC 4.79 4.48 Hgb 13.3 12.5 Hct 40.5 37.9 MCV 84.6 84.5 MCH 27.8 27.8 MCHC 32.9 32.9 RDW 13.7 13.3 Plt Count 147 L 129 L Neut % (Auto) 52.2 45.6 L Lymph % (Auto) 32.5 35.5 [place] % (Auto) 10.9 14.7 H Eos % (Auto) 3.5 3.5 Baso % (Auto) 0.9 0.7 Neut # (Auto) 1600 1100 L Lymph # (Auto) 1000 L 800 L [place] # (Auto) 300 300 Eos # (Auto) 100 100 Baso # (Auto) 0 0 Sodium 136 L 137 Potassium 4.2 4.5 Chloride 104 107 Carbon Dioxide 25 27 BUN 12 10 Creatinine 0.69 0.66 Estimated GFR > 60 > 60 BUN/Creatinine Ratio 17.4 15.2 Glucose 95 96 Calcium 9.1 8.6 Total Bilirubin 0.8 0.6 AST 30 22 ALT 15 12 Alkaline Phosphatase 55 43 Troponin I < 0.012 Total Protein 6.8 5.7 L Albumin 4.1 3.2 L Globulin 2.7 2.5 Albumin/Globulin Ratio 1.5 1.3 Lipase 84 Assessment & Plan Assessment & Plan narrative: 1. Symptomatic cholelithiasis. Active. 2. Leukopenia. Active. Chronic medical problems: Hypothyroidism. Resume home Synthroid. Depression. Resume home antidepressant. PLAN: -surgical consult for possible cholecystectomy. DVT prophylaxis SCDs due to possible surgery in the morning. CODE STATUS full code. Anticipate 1 midnight in the hospital and discharge on September 16. Time-Based Coding :: 35 min spent with patient and on the chart (including review of chart, obtaining history, exam, reviewing outside data, placing orders, documenting exam and treatment plan, and counseling patient) on 09/15. Quality MIPS - Admit The patient?s Advance Care plan is not present because I confirmed today that the patient does not wish or was not able to name a surrogate decision maker or provide an Advance Care Plan.: Yes MIPS - Meds 'Current medications' to include all prescriptions, ltvl-oqb-[id number] products, herbals, cannabis/cannabidiol products, and vitamin/mineral/dietary (nutritional) supplements. I have utilized all available resources to obtain, update, or review the patient?s current medications. [If Yes, STOP here]: Yes
--- NOTE | 2024-09-15 08:08 | PM.CN.IH.1 ---
History of Present Illness Consult details Date Patient Seen: 09/15/24 Time Patient Seen: 08:00 Chief complaint: gallstone sent by PCP Reason for consult: Abdominal pain Narrative: 73-year-old female with 1 month history of vague symptoms of nausea and occasional right upper quadrant abdominal pain generally self-limited and postprandial in nature. Yesterday she had an unusually severe episode. She presented to the ED where she had no leukocytosis and LFTs were normal. Ultrasonography demonstrated a thin-walled gallbladder without pericholecystic fluid and a gallstone. She was admitted for presumed acute cholecystitis. Her pain has since resolved. Meds Home Medications and Allergies Home Medications ?Medication ?Instructions ?Recorded ?Confirmed ?Type dextroamphetamine-amphetamine ER 1 cap PO DAILY 09/15/24 09/15/24 History 10 mg 24hr capsule,extend release estradiol 0.025 mg/24 hr weekly 1 patch transdermal .COMPLEX 09/15/24 09/15/24 History transdermal patch fluoxetine 10 mg capsule 10 mg PO DAILY 09/15/24 09/15/24 History levothyroxine 125 mcg tablet 125 mcg PO DAILY 09/15/24 09/15/24 History pramipexole 0.25 mg tablet 0.25 mg PO 3XD 09/15/24 09/15/24 History progesterone micronized 100 mg 100 mg PO QPM 09/15/24 09/15/24 History capsule trazodone 100 mg tablet 100 mg PO ONCE PM PRN insomnia 09/15/24 09/15/24 History Allergies Allergy/AdvReac Type Severity Reaction Status Date / Time Sulfa (Sulfonamide Allergy Severe Anaphylaxis Verified 09/14/24 18:03 Antibiotics) Review of Systems Review of Systems Narrative: Comprehensive review of systems negative to direct questioning with the exception of the previously mentioned chronic conditions. Exam Vital Signs (past 8 hours): - 09/15/24 00:13 09/15/24 00:13 09/15/24 00:28 Temperature 97.6 F Pulse Rate 88 78 Respiratory Rate 18 18 Blood Pressure 137/81 142/68 H Pulse Oximetry 96 97 Oxygen Delivery Method Oxygen Flow Rate 0 09/15/24 00:30 09/15/24 00:36 09/15/24 01:35 Temperature 97.6 F Pulse Rate 69 78 Respiratory Rate 18 18 Blood Pressure 142/68 H Pulse Oximetry 96 97 Oxygen Delivery Method Room Air Oxygen Flow Rate 0 09/15/24 06:00 Temperature 97.0 F L Pulse Rate 80 Respiratory Rate 19 Blood Pressure 132/66 Pulse Oximetry 96 Oxygen Delivery Method Oxygen Flow Rate 0 Oxygen Delivery Method Room Air Oxygen Flow Rate 0 Narrative Exam Narrative: Head is normocephalic and atraumatic. Neck is supple. Back is without CVA or spinous process tenderness. Lungs are clear to auscultation. Chest is symmetric nontender with normal inspiratory and expiratory excursion. Heart has a regular rate and rhythm with no murmur or gallop. Abdomen is generally soft and nontender with normal bowel sounds. Neurological exam is grossly nonfocal. Extremities manifests full range of motion. Objective Labs 09/15/24 05:53 09/15/24 05:53 Labs: Laboratory Results - last 24 hr 09/14/24 09/14/24 09/15/24 18:15 19:48 05:53 WBC 3.1 L 2.3 L RBC 4.79 4.48 Hgb 13.3 12.5 Hct 40.5 37.9 MCV 84.6 84.5 MCH 27.8 27.8 MCHC 32.9 32.9 RDW 13.7 13.3 Plt Count 147 L 129 L Neut % (Auto) 52.2 45.6 L Lymph % (Auto) 32.5 35.5 [place] % (Auto) 10.9 14.7 H Eos % (Auto) 3.5 3.5 Baso % (Auto) 0.9 0.7 Neut # (Auto) 1600 1100 L Lymph # (Auto) 1000 L 800 L [place] # (Auto) 300 300 Eos # (Auto) 100 100 Baso # (Auto) 0 0 Sodium 136 L 137 Potassium 4.2 4.5 Chloride 104 107 Carbon Dioxide 25 27 BUN 12 10 Creatinine 0.69 0.66 Estimated GFR > 60 > 60 BUN/Creatinine Ratio 17.4 15.2 Glucose 95 96 Calcium 9.1 8.6 Total Bilirubin 0.8 0.6 AST 30 22 ALT 15 12 Alkaline Phosphatase 55 43 Troponin I < 0.012 Total Protein 6.8 5.7 L Albumin 4.1 3.2 L Globulin 2.7 2.5 Albumin/Globulin Ratio 1.5 1.3 Lipase 84 PFSH Social History household members: none Tobacco & Substance Use Smoking Status: Never smoker Assessment & Plan Assessment and plan (1) Symptomatic cholelithiasis: Problem details: Symptomatic cholelithiasis. A laparoscopic attempt at cholecystectomy is indicated to prevent the complications of symptomatic gallstones. Alternatives, risks and benefits were discussed in detail. Questions were answered. The patient voices understanding, asked appropriate questions and will discuss the matter with her son. As the patient does not have acute cholecystitis, an elective intervention is reasonable should she desire to proceed in that fashion. It would be equally reasonable to proceed later this morning as a matter of convenience to the patient's and she is admitted. Status: Acute Time-Based Coding :: [TOTAL MINUTES] spent with patient and on the chart (including review of chart, obtaining history, exam, reviewing outside data, placing orders, documenting exam and treatment plan, and counseling patient) on [DATE]. PROFEE Charge Codes Inpatient or Observation consultation: [id number]
[2024-09-15] MEDS: FLUoxetine 10 MG CAPSULE PO (08:16)
[2024-09-15] MEDS: CEFAZOLIN 2 GM/100 ML PREMIX 100 ML IV ×2 (08:49→18:00)
--- NOTE | 2024-09-15 14:47 | CM.DANOTE ---
Initial DCP Assessment Note Pt is a 73 yo female, resident of [place], presents with abd pain, known gallstone attack, admitted for Lap Micaela w/general surgery. PCP: BEVERLY Balbuena Payer: Ritika MARSHALL Reviewed chart, pt discussed in multidisciplinary rounds this morning. SUMMER / - depends on post operative course and advancement of diet. Patient is a social service coordinator for [employer], lives independently in [place]. No barriers identified at this time to patient's safe discharge home when medically cleared. CM team will plan to follow clinical course closely in case any DC needs or concerns arise. DOROTHEA Meza Discharge Planning/Care Management CM Discharge Assessment Start: 09/15/24 00:36 Freq: Status: Active Protocol: Document 09/15/24 14:38 RANDY (Rec: 09/15/24 14:47 RANDY [id number]) Discharge Planning Assessment Assigned Discharge DOROTHEA Wade Supervisor Mill DPOA/Assigned Felicity Foley [employer] [place] Designee Name Contact Information Cell Phone Advance Directives? No History Provided By Patient Prior Living House Arrangements Household Members none Independent with ADL Yes 's Is patient alert and Yes oriented? Discharge Plan Home Transportation Friends Arrangement Referrals Initiated None needed
[2024-09-15] MEDS: LACTATED RINGERS 1,000 ML 42 ML IV ×2 (17:45→18:33)
--- NOTE | 2024-09-15 18:16 | SUR.OPER ---
Supine on padded OR bed, head on pillow, safety belt at thigh, left arm padded and tucked at side. Right arm secured on padded arm board <90 degrees abduction. Legs uncrossed. Padded footboard in place. Tape over blanket to secure lower legs.
[2024-09-15] MEDS: BUPIVACAINE 0.5% W/ EPI (PF) 30 ML VIAL INJ (18:22)
[2024-09-15] MEDS: ONDANSETRON 4 MG/2 ML INJ IV (19:10)
--- NOTE | 2024-09-15 19:10 | P.OP_ITS ---
Operative Date/Time/Diagnoses Date of procedure: 09/15/24 Time of procedure: 18:00 Pre-op diagnosis: Gallstones Post-op diagnosis: same Procedure & Clinicians Procedure: Laparoscopic cholecystectomy Same procedure as scheduled: Yes Indications: Gallstones Surgeon: Valentino Grullon Click Yes if Unassisted: Yes Anesthesia Type: General Operative Notes Findings: Cholelithiasis with chronic cholecystitis Closure Type: primary Specimen(s): other (Gallbladder and contents) Estimated Blood Loss (mL): 5 Procedure in detail: After obtaining informed consent properly identifying the patient she was transported to the operating room and placed on the table in the supine position general endotracheal anesthesia was induced and the abdomen was prepped and draped in the usual sterile manner.. A vertical midline incision of 2.5 cm length was made with a its caudad apex at the umbilical verge. This was carried down onto the linea Alba with the electrocautery. Traction sutures of 0 Vicryl were placed on either side of midline and and peritoneotomy was made with a 15 blade between traction sutures. A 12 mm Kumar cannula was inserted called and was secured by inflating the balloon at its tip. Pneumoperitoneum was instilled. A 10 mm 30 degree angled scope was passed. Three additional 5 mm ports were placed 2 fingerbreadths below the right costal margin under direct laparoscopic vision, 1 each in the following positions: Subxiphoid, midclavicular line and anterior axillary line. The gallbladder fundus was reflected anteriorly and cephalad and the infundibulum laterally. Sharp and blunt dissection with the L hook cautery and [place] dissector was undertaken in the triangle of [place]. The cystic duct and artery were identified. Critical view was obtained and these structures were triply clipped and transected between the clips nearest the gallbladder. Remainder of the procedure consisted of sharp L hook cautery dissection in the plane between the gallbladder wall and gallbladder fossa which proceeded from the infundibulum towards the fundus final attachments were taken and the liver edge was allowed to retract. 10 mm scope was withdrawn from the Kumar and a 5 mm scope was passed through the upper midline port. An Endo-Catch was passed through the Kumar and the specimen was bagged under direct laparoscopic vision. The Kumar balloon was deflated and the Kumar, Endo-Catch and specimen were withdrawn from the supraumbilical port site as a unit. The specimen was passed from the field and the Kumar and 10 mm 30 degree angled scope were restored to their original positions. The subhepatic space was copiously irrigated and inspected. Hemostasis was perfect and clips were secure. All laparoscopic equipment was withdrawn under direct laparoscopic vision. Pneumoperitoneum was evacuated and ports were withdrawn. The supraumbilical fa scial defect was closed with a running 0 Prolene stitch. Field blocks path% Marcaine were instilled into the wounds which were then closed with a series of inverted simple interrupted deep dermal 3-0 Vicryl sutures and Dermabond. The patient tolerated the procedure well and was transported to the recovery room extubated and awake. Complications: none Post-operative Condition: stable Disposition: PACU Plan for aftercare: Transferred to floor
[2024-09-15] MEDS: fentaNYL 100 MCG/2 ML INJ IV (19:21)
[2024-09-15] MEDS: ACETAMINOPHEN IV 1,000 MG/100 ML VIAL 400 MG IV (19:23)
[2024-09-15] MEDS: HYDROMORPHONE 1 MG INJ IV (19:33)
[2024-09-15] MEDS: KETOROLAC 30 MG/ML VIAL IV (19:39)
[2024-09-15] MEDS: hydrOXYzine 50 MG/ML INJ 25 MG IM (19:47)
--- NOTE | 2024-09-15 20:23 | SUR.PHASEI ---
Pt transfered to the floor in bed with glasses and phone. SBAR report to Monica Keys.
[2024-09-15] MEDS: SODIUM CHLORIDE 0.9% 1,000 ML 84 ML IV (21:17)
[2024-09-16] MEDS: ONDANSETRON 4 MG/2 ML INJ IV ×2 (00:40→05:12)
[2024-09-16] MEDS: OXYCODONE/ACETAMINOPHEN 5/325 TABLET 1 TAB PO ×3 (00:40→10:51)
[2024-09-16 04:37] LABS: Hematocrit 40.6 % (36-46); Hemoglobin 13.4 g/dL (12.0-16.0); Mean Corpuscular Hemoglobin 27.7 PG (26-34); Mean Corpuscular Volume 83.9 fL (80-100); Platelet Count 135 X10^3/uL (150-400); Red Blood Cell Count 4.84 X10^6/uL (4.0-5.2); Red Cell Distribution Width 13.4 % (11.6-14.8); White Blood Cell Count 5.5 X10^3/uL (4.5-11.0)
[2024-09-16 04:45] VITALS: BP 148/86; PULSE 84; RESP 19; TEMP 37; O2SAT 98
[2024-09-16 04:48] LABS: Alanine Aminotransferase 32 IU/L (<35); Albumin 3.5 g/dL (3.5-5.0); Albumin Globulin Ratio 1.4 (1.0-2.8); Alkaline Phosphatase 60 U/L (38-126); Aspartate Aminotransferase 65 IU/L (14-36); BUN Creatinine Ratio 13.6 (6-22); Bilirubin Total 0.7 mg/dL (0.2-1.3); Blood Urea Nitrogen 8 mg/dL (7-17); Calcium 8.7 mg/dL (8.4-10.2); Carbon Dioxide 24 mmol/L (22-32); Chloride 104 mmol/L (98-107); Estimated Glomerular Filt Rate > 60 mL/min (>60); Globulin 2.5 g/dL (1.7-4.1); Glucose 143 mg/dL (70-99); HEMOLYSIS < 15 (0-50); Potassium 4.5 mmol/L (3.4-5.1); Sodium 136 mmol/L (137-145)
[2024-09-16 08:00] VITALS: BP 135/58; PULSE 80; RESP 18; TEMP 36.4; O2SAT 94
--- NOTE | 2024-09-16 09:04 | PM.PN.IH.1 ---
Subjective Subjective Date Patient Seen: 09/16/24 Time Patient Seen: 09:04 Exam Vital Signs (past 8 hours): - 09/16/24 04:45 09/16/24 08:00 Temperature 98.6 F 97.6 F Pulse Rate 84 80 Respiratory Rate 19 18 Blood Pressure 148/86 H 135/58 L Pulse Oximetry 98 94 Oxygen Flow Rate 0 0 Oxygen Delivery Method Nasal Cannula Oxygen Flow Rate 0 Objective Labs 09/16/24 04:22 09/16/24 04:22 Labs: Laboratory Results - last 24 hr 09/16/24 04:22 WBC 5.5 D RBC 4.84 Hgb 13.4 Hct 40.6 MCV 83.9 MCH 27.7 MCHC 33.0 RDW 13.4 Plt Count 135 L Sodium 136 L Potassium 4.5 Chloride 104 Carbon Dioxide 24 BUN 8 Creatinine 0.59 Estimated GFR > 60 BUN/Creatinine Ratio 13.6 Glucose 143 H Calcium 8.7 Total Bilirubin 0.7 AST 65 H ALT 32 Alkaline Phosphatase 60 Total Protein 6.0 L Albumin 3.5 Globulin 2.5 Albumin/Globulin Ratio 1.4 PFSH Social History household members: none Smoking Status: Never smoker alcohol intake: former Assessment & Plan Time-Based Coding :: [TOTAL MINUTES] spent with patient and on the chart (including review of chart, obtaining history, exam, reviewing outside data, placing orders, documenting exam and treatment plan, and counseling patient) on [DATE]. PROFEE Primer Inserting Machine Operator Document charge(s): No
--- NOTE | 2024-09-16 09:09 | P.PN_ITS ---
Subjective Subjective Date Patient Seen: 09/16/24 Time Patient Seen: 09:00 Interval history: Feels well. Pain control adequate. Tolerant of regular diet. Exam Vital Signs (past 8 hours): - 09/16/24 04:45 09/16/24 08:00 Temperature 98.6 F 97.6 F Pulse Rate 84 80 Respiratory Rate 19 18 Blood Pressure 148/86 H 135/58 L Pulse Oximetry 98 94 Oxygen Flow Rate 0 0 Oxygen Delivery Method Nasal Cannula Oxygen Flow Rate 0 Narrative Exam Narrative: Lungs are clear to auscultation. Heart has a regular rate and rhythm with no murmur or gallop. Abdomen is soft. Appropriate incisional tenderness is noted. Bowel sounds are present. Dressings are dry. Objective Labs 09/16/24 04:22 09/16/24 04:22 Labs: Laboratory Results - last 24 hr 09/16/24 04:22 WBC 5.5 D RBC 4.84 Hgb 13.4 Hct 40.6 MCV 83.9 MCH 27.7 MCHC 33.0 RDW 13.4 Plt Count 135 L Sodium 136 L Potassium 4.5 Chloride 104 Carbon Dioxide 24 BUN 8 Creatinine 0.59 Estimated GFR > 60 BUN/Creatinine Ratio 13.6 Glucose 143 H Calcium 8.7 Total Bilirubin 0.7 AST 65 H ALT 32 Alkaline Phosphatase 60 Total Protein 6.0 L Albumin 3.5 Globulin 2.5 Albumin/Globulin Ratio 1.4 PFSH Social History household members: none Smoking Status: Never smoker alcohol intake: former Assessment & Plan Assessment and plan (1) Symptomatic cholelithiasis: Problem details: Symptomatic cholelithiasis. A laparoscopic attempt at cholecystectomy is indicated to prevent the complications of symptomatic gallstones. Alternatives, risks and benefits were discussed in detail. Questions were answered. The patient voices understanding, asked appropriate questions and will discuss the matter with her son. As the patient does not have acute cholecystitis, an elective intervention is reasonable should she desire to proceed in that fashion. It would be equally reasonable to proceed later this morning as a matter of convenience to the patient's and she is admitted. Status: Acute Plan Doing well postop day 1 from laparoscopic cholecystectomy. Plan: Discharge to home. Follow up 1 week. Time-Based Coding :: [TOTAL MINUTES] spent with patient and on the chart (including review of chart, obtaining history, exam, reviewing outside data, placing orders, documenting exam and treatment plan, and counseling patient) on [DATE]. PROFEE Geological Technician Document charge(s): No
--- NOTE | 2024-09-16 09:22 | PM.DS.IH.1 ---
History of Present Illness History of Present Illness Date Patient Seen: 09/15/24 Chief complaint: gallstone sent by PCP Narrative: 73-year-old female admitted for treatment of biliary colic. Discharge Providers Provider Date of admission: 09/15/24 00:31 Discharge Date: 09/16/24 Primary care physician: BEVERLY Henao Consults: 09/15/24 19:05 Consult to Discharge Planning Routine Comment: Discharge provider: Valentino Grullon MD Summary Hospital Course Discharge Diagnosis: Chronic cholecystitis with cholelithiasis. Hospital Course: Patient was admitted on the evening of 14 September. Preoperative evaluation demonstrated no contraindication to proceeding with laparoscopic attempt at cholecystectomy in on the 15 of September the patient was taken to the operating room where a laparoscopic cholecystectomy was undertaken under general endotracheal anesthesia. The patient tolerated the procedure well. Her postoperative course is characterized by rapid recovery. She received adequate pain control with [place] 5/325 and was tolerant of regular diet. She is discharged home in good condition on the morning of the 1st postoperative day. Status at Discharge Cognitive/behavioral status at discharge: oriented Functional status at discharge: independent ambulation Overall status at discharge: patient is back to baseline Time Spent with Patient Time spent: Greater than 30 minutes Exam Vital Signs (past 8 hours): - 09/16/24 04:45 09/16/24 08:00 Temperature 98.6 F 97.6 F Pulse Rate 84 80 Respiratory Rate 19 18 Blood Pressure 148/86 H 135/58 L Pulse Oximetry 98 94 Oxygen Flow Rate 0 0 Oxygen Delivery Method Nasal Cannula Oxygen Flow Rate 0 Narrative Exam Narrative: Lungs are clear to auscultation. Heart has a regular rate and rhythm with no murmur or gallop. Abdomen is soft with appropriate incisional tenderness. Bowel sounds are present. Dressings are dry. Const General: cooperative, healthy appearing and comfortable Objective Labs 09/16/24 04:22 09/16/24 04:22 Labs: Laboratory Results - last 24 hr 09/16/24 04:22 WBC 5.5 D RBC 4.84 Hgb 13.4 Hct 40.6 MCV 83.9 MCH 27.7 MCHC 33.0 RDW 13.4 Plt Count 135 L Sodium 136 L Potassium 4.5 Chloride 104 Carbon Dioxide 24 BUN 8 Creatinine 0.59 Estimated GFR > 60 BUN/Creatinine Ratio 13.6 Glucose 143 H Calcium 8.7 Total Bilirubin 0.7 AST 65 H ALT 32 Alkaline Phosphatase 60 Total Protein 6.0 L Albumin 3.5 Globulin 2.5 Albumin/Globulin Ratio 1.4 PFSH Social History household members: none Smoking Status: Never smoker alcohol intake: former Discharge Assessment & Plan Assessment and Plan Assessment: Recovered from laparoscopic cholecystectomy. Plan of Treatment: Discharge to home. Follow up with me in 1 week. Discharge Plan Discharge Plan Patient Disposition: Home Discharge orders & Medications Prescriptions: New hydrocodone-acetaminophen 5-325 mg tablet 1 tab PO Q6H PRN (Reason: pain) Qty: 30 0RF ondansetron HCl 4 mg tablet 4 mg PO BID-TID PRN (Reason: nausea and vomiting) Qty: 10 0RF Continued dextroamphetamine-amphetamine 10 mg capsule,extended release 24hr 1 cap PO DAILY levothyroxine 125 mcg tablet 125 mcg PO DAILY trazodone 100 mg tablet 100 mg PO ONCE PM PRN (Reason: insomnia) pramipexole 0.25 mg tablet 0.25 mg PO 3XD Patient Comments: takes 2 to 3 tablets as needed nightly for leg cramps progesterone micronized 100 mg capsule 100 mg PO QPM estradiol 0.025 mg/24 hr patch weekly 1 patch transdermal .COMPLEX Patient Comments: once weekly Rx Instructions: 1 patch transdermally change once weekly; fluoxetine 10 mg capsule 10 mg PO DAILY Follow up/Referrals: Griselda King ARNP [Primary Care Provider, Nursing] Visit Report/Discharge Packet Stand Alone Forms: Patient Portal/API, Stroke Signs & Symptoms Discharge Data Primary Care Provider: Griselda King Attending Provider: Matthew Guan Admit Date/Time: 09/15/24 00:31 PROFEE Charge Codes Discharge inpatient/observation: [id number]
--- NOTE | 2024-09-16 09:34 | CM.DPNOTE ---
DCP note TRACTOR MECHANIC reviewed EMR per chart review, cleared to dc today. Per RN, pt already has boarding pass for home. no new identified CM needs at this time Per previous CM notes, anticipated home with friends to transport. no CM needs. P: anticipate home today with likely OP f/u. no CM needs. will continue to follow in case any arise DOROTHEA So
--- NOTE | 2024-09-16 10:30 | PM.PN.1 ---
Subjective Subjective Interval history: S: Doing great, no pain. No nausea. Exam Vital Signs (past 8 hours): - 09/16/24 04:45 09/16/24 08:00 Temperature 98.6 F 97.6 F Pulse Rate 84 80 Respiratory Rate 19 18 Blood Pressure 148/86 H 135/58 L Pulse Oximetry 98 94 Oxygen Flow Rate 0 0 Oxygen Delivery Method Nasal Cannula Oxygen Flow Rate 0 Narrative Exam Narrative: NAD, breathing without difficulty. She is ambulating. No abdominal distention. Objective Labs 09/16/24 04:22 09/16/24 04:22 Labs: Laboratory Results - last 24 hr 09/16/24 04:22 WBC 5.5 D RBC 4.84 Hgb 13.4 Hct 40.6 MCV 83.9 MCH 27.7 MCHC 33.0 RDW 13.4 Plt Count 135 L Sodium 136 L Potassium 4.5 Chloride 104 Carbon Dioxide 24 BUN 8 Creatinine 0.59 Estimated GFR > 60 BUN/Creatinine Ratio 13.6 Glucose 143 H Calcium 8.7 Total Bilirubin 0.7 AST 65 H ALT 32 Alkaline Phosphatase 60 Total Protein 6.0 L Albumin 3.5 Globulin 2.5 Albumin/Globulin Ratio 1.4 [facility] Social History household members: none Smoking Status: Never smoker alcohol intake: former Assessment & Plan Assessment & Plan narrative: 1. Cholelithiasis with pain, improved after cholecystectomy. She is discharging today with oral pain medications and surgical follow up. Time-Based Coding :: [TOTAL MINUTES] spent with patient and on the chart (including review of chart, obtaining history, exam, reviewing outside data, placing orders, documenting exam and treatment plan, and counseling patient) on [DATE].
--- NOTE | 2024-09-16 11:24 | PC.NURSE ---
Discharge note: Patient discharge home per MD order. Up OOB to chair and BR. Surgical pain adequately controlled with PO medication. Tolerating oral intake. Voiding without difficulty. Discharge instructions given to patient, discussed importance of F/U with PMD, home surgical and dressing care, and signs of worsening symptoms. Home via private vehicle, accompanied by brendan Salas. Avery fuller at 1300 to [place]. Rx picked up by son at [facility].
== END 2024-09-16 10:45 | disposition home or self-care (01) ==
LOC: ED 21:52 → AC 09-15 00:32
PROVIDERS: Family Medicine; Hospitalist; Admitting Provider Internal Medicine; Emergency Provider Emergency Medicine; Family Provider Family Medicine; PCP Nurse Practitioner Family; Referring Provider Surgery; Visit Provider Internal Medicine
PROC: 0FT44ZZ Resection of Gallbladder, Percutaneous Endoscopic Approach (ICD-10-PCS; CPT 47563; principal; 2024-09-15 14:00)
DX: R10.11 Right upper quadrant pain (principal); K80.10 Calculus of gallbladder with chronic cholecystitis without obstruction; E03.9 Hypothyroidism, unspecified; F32.A Depression, unspecified
CPT/HCPCS: 47562; 36415; 76705; 80053; 81003; 83690; 84484; 85025; 85027; 93005; 96361; 96365; 96375; 96376; 99222; 99284; G0378; J0131; J0330; J0690; J1100; J1171; J1885; J2405; J2704; J3010; J3410; J3490